=== PATIENT | female | born 1970 | race Caucasian/White ===

== ENCOUNTER → 2018-02-11 | Outpatient (CLI) | payer OTHER ==
[~2018-02-11] MED LIST: BENTYL 20 MG TA20 M1 PO; CARDIZEM30 MG; EFFEXOR XR75 MG PO; LEVONORG-ETH E1 EACH PO; LISINOPRIL10 MG PO; NEURONTIN600 MG; PRILOSEC OTC20 MG; SINGULAIR 10 MG10 M1 PO; ZANAFLEX4 MG PO; ZORVOLEX35 MG; ZYRTEC10 M5 PO
== END ==
LOC: M.NUC 02-04 14:30
DX: K31.84 Gastroparesis (principal)